=== PATIENT | male | born 1950 | race Caucasian/White ===

== ENCOUNTER → 2021-11-13 | Outpatient (CLI) | payer MEDICARE | LOC: EXRD 14:41 | DX: R09.89 Other specified symptoms and signs involving the circulatory and respiratory systems (principal); I73.9 Peripheral vascular disease, unspecified; I65.23 Occlusion and stenosis of bilateral carotid arteries | CPT/HCPCS: 93880 ==

== ENCOUNTER → 2021-12-04 | Outpatient (CLI) | payer MEDICARE ==
[2021-12-04 13:52] LABS: BUN/CREATININE RATIO 11 (0-10)
== END ==
LOC: LAB 12:22
PROVIDERS: Physician Assistant
DX: R09.89 Other specified symptoms and signs involving the circulatory and respiratory systems (principal)
CPT/HCPCS: 36415; 80048

== ENCOUNTER → 2021-12-06 | Outpatient (CLI) | payer MEDICARE | LOC: CT 14:09 | DX: R93.89 Abnormal findings on diagnostic imaging of other specified body structures (principal); I65.21 Occlusion and stenosis of right carotid artery | CPT/HCPCS: 70498; Q9967 ==

== ENCOUNTER → 2021-12-26 | Outpatient (CLI) | payer MEDICARE ==
[2021-12-26 14:23] LABS: BUN/CREATININE RATIO 13 (0-10)
== END ==
LOC: CT 13:38
PROVIDERS: Physician Assistant
DX: R59.9 Enlarged lymph nodes, unspecified (principal); I77.1 Stricture of artery; R91.8 Other nonspecific abnormal finding of lung field
CPT/HCPCS: 36415; 71275; 80048; Q9967

== ENCOUNTER → 2022-01-31 | Outpatient (CLI) | payer MEDICARE | LOC: HEART 5 15:02 | DX: J44.9 Chronic obstructive pulmonary disease, unspecified (principal) | CPT/HCPCS: 94060; 94729 ==

== ENCOUNTER → 2022-05-03 | Outpatient (CLI) | payer MEDICARE | LOC: CT 10:39 → KOH-I 11:30 | DX: R91.8 Other nonspecific abnormal finding of lung field (principal) | CPT/HCPCS: 71250 ==